=== PATIENT | female | born 1995 | race Caucasian/White ===

== ENCOUNTER 2020-05-26 | Emergency (ER) | payer OTHER ==
--- NOTE | 2020-05-26 15:55 | ER ---
Nurse's Notes [facility] Name: Em Estrada Age: 25 yrs Sex: Female : 1995 Arrival Date: 05/26/2020 Time: 14:57 Bed Waiting Private MD: Diagnosis: Presentation: 05/26 15:36 Note Called from the lobby, no answer. ca1 ED Course: 14:57 Patient arrived in ED. as 15:27 Deborah [facility]strada FNP-C [facility] kb 15:28 Yury Larios MD is Attending Physician. kb 15:53 Patient's name was called from ER lobby. No response. Unable to locate patient. Will ca1 disposition as left without being seen by a provider. Administered Medications: No medications were administered Outcome: 15:54 Patient left the ED. ca1 Signatures: Deborah Estrada FNP-C FNP-Ckb Martinez, Amelia as Acob, Cheryl RN RN ca1
== END 2020-05-26 15:54 | disposition left against medical advice (07) ==
DX: Z02.9 Encounter for administrative examinations, unspecified (principal)

== ENCOUNTER 2020-06-02 15:12 | Emergency (ER) | payer OTHER ==
[2020-06-02] MEDS ORDERED: METHYLPREDNISOLONE 125 MG INJ ONE (16:22)
--- NOTE | 2020-06-02 17:46 | ER ---
Nurse's Notes [facility] [place], [place] Name: Em Estrada Age: 25 yrs Sex: Female : 1995 Arrival Date: 06/02/2020 Time: 15:14 Bed 27 Private MD: Diagnosis: Acute upper respiratory infection, unspecified Presentation: 06/02 15:33 Chief complaint: Patient states: has been on abx and steroid for sore throat and cough iw and diff breathing X 1 week, has had bad migraines, has hx of asthma, going through her inhaler, still having diff breathing, is seeing a tele doc through her insurance. Coronavirus screen: headache, shortness of breath, Client presents with at least one sign or symptom that may indicate coronavirus-19. Standard/surgical mask placed on the client. Provider contacted for isolation considerations. Ebola Screen: Patient negative for fever greater than or equal to 101.5 degrees Fahrenheit, and additional compatible Ebola Virus Disease symptoms Patient denies exposure to infectious person. Patient denies travel to an Ebola-affected area in the 21 days before illness onset. No symptoms or risks identified at this time. Initial Sepsis Screen: Does the patient meet any 2 criteria? No. Patient's initial sepsis screen is negative. Does the patient have a suspected source of infection? No. Patient's initial sepsis screen is negative. Risk Assessment: Do you want to hurt yourself or someone else? Patient reports no desire to harm self or others. Onset of symptoms was May 26, 2020. 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 - Social history:: Smoking status: Patient denies any tobacco usage or history of. Screenin:07 Abuse screen: Denies threats or abuse. Denies injuries from another. Nutritional iw screening: No deficits noted. Tuberculosis screening: No symptoms or risk factors identified. Fall Risk None identified. Assessment: 15:45 General: Appears in no apparent distress. comfortable, Behavior is calm, cooperative. iw Pain: Complains of pain in head. Neuro: Level of Consciousness is awake, alert, obeys commands, Oriented to person, place, time, situation. Cardiovascular: Reports shortness of breath, Rhythm is regular. Respiratory: Airway is patent Respiratory effort is even, unlabored, Breath sounds are clear bilaterally. GI: No signs and/or symptoms were reported involving the gastrointestinal system. Derm: Skin is intact, is healthy with good turgor. Musculoskeletal: Range of motion: intact in all extremities. 17:07 Reassessment: Patient appears in no apparent distress at this time. Patient and/or iw family updated on plan of care and expected duration. Pain level reassessed. Patient is alert, oriented x 3, equal unlabored respirations, skin warm/dry/pink. 17:57 Reassessment: Patient appears in no apparent distress at this time. Patient is alert, ca1 oriented x 3, equal unlabored respirations, skin warm/dry/pink. Patient states feeling better. Vital Signs: 15:33 BP 120 / 89; Pulse 97; Resp 18 S; Temp 97.7; Pulse Ox 99% on R/A; iw 17:48 BP 112 / 66; Pulse 83; Resp 18 S; Pulse Ox 100% on R/A; ca1 ED Course: 15:14 Patient arrived in ED. rg4 15:30 [facility]C [facility]. kb 15:30 Racquel River MD is Attending Physician. kb 15:35 Triage completed. iw 15:35 Arm band placed on. iw 17:02 Anna Jc, RN is Primary Nurse. ca1 17:05 Patient has correct armband on for positive identification. Placed in gown. Bed in low ca1 position. Call light in reach. Side rails up X 1. 17:38 Chest Single View XRAY In Process Unspecified. EDMS 17:46 No provider procedures requiring assistance completed. Patient did not have IV access ca1 during this emergency room visit. Administered Medications: 16:11 Drug: SOLU-Medrol 125 mg Route: IM; Site: right deltoid; iw 17:48 Follow up: Response: No adverse reaction; Marked relief of symptoms ca1 Outcome: 17:45 Discharge ordered by . kb 17:57 Discharged to home ambulatory. ca1 17:57 Condition: stable 17:57 Discharge instructions given to patient, Instructed on discharge instructions, follow up and referral plans. medication usage, Demonstrated understanding of instructions, follow-up care, medications, Prescriptions given X 3. 17:57 Patient left the ED. ca1 Addendum: 06/05/2020 07:56 Addendum: COVID-19 Result: Negative result given to RN to notify pt. Attempted to a a5 contact pt regarding negative COVID-19 swab results. Other: Pt's phone number unavailable. Contacted next of kin on pt's demographics and left voice mail for pt to call back to ER for results. Signatures: Dispatcher [employer] Deborah Crane, HALL PORTER-C HALL PORTER-Jeaneth Moore, RN RN Swati Alnaiz RN RN Khadijah Valera4 Anna Jc RN RN ca1 Corrections: (The following items were deleted from the chart) 06/02 17:48 17:00 Patient has correct armband on for positive identification. Placed in gown. Bed ca1 in low position. Call light in reach. Side rails up X 1. ca1
--- NOTE | 2020-06-02 17:46 | EDPHYS ---
Physician Documentation [facility] Name: Em Estrada Age: 25 yrs Sex: Female : 1995 Arrival Date: 06/02/2020 Time: 15:14 Bed 27 Private MD: ED Physician Racquel River HPI: 06/02 16:45 This 25 yrs old Female presents to ER via Ambulatory with complaints of kb Breathing Difficulty, Headache, Cough, Body Aches. 16:45 The patient or guardian reports airway noise, cough, that is intermittent, described as kb mild, difficulty breathing, flu symptoms, myalgias. Onset: The symptoms/episode began/occurred 1 week(s) ago. Severity of symptoms: At their worst the symptoms were moderate, in the emergency department the symptoms are unchanged. Modifying factors: The symptoms are alleviated by nothing, the symptoms are aggravated by nothing. Associated signs and symptoms: The patient has no apparent associated signs or symptoms. The patient has not experienced similar symptoms in the past. The patient has not recently seen a physician. PT reports cough, shortness of breath, body aches, headaches for a week. Completed a course of zithromax and prednisone, but still having symptoms. Now out of inhaler. 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 - Social history:: Smoking status: Patient denies any tobacco usage or history of. ROS: 16:43 Cardiovascular: Negative for chest pain, palpitations, and edema, Abdomen/GI: Negative kb for abdominal pain, nausea, vomiting, diarrhea, and constipation, Back: Negative for injury and pain, : Negative for injury, bleeding, discharge, and swelling, MS/Extremity: Negative for injury and deformity, Skin: Negative for injury, rash, and discoloration. 16:43 Constitutional: Positive for body aches, malaise. 16:43 Respiratory: Positive for cough, dyspnea on exertion, shortness of breath. 16:43 Neuro: Positive for headache. Exam: 16:43 Constitutional: This is a well developed, well nourished patient who is awake, alert, kb and in no acute distress. Head/Face: Normocephalic, atraumatic. Chest/axilla: Normal chest wall appearance and motion. Nontender with no deformity. No lesions are appreciated. Cardiovascular: Regular rate and rhythm with a normal S1 and S2. No gallops, murmurs, or rubs. Normal PMI, no JVD. No pulse deficits. Respiratory: Lungs have equal breath sounds bilaterally, clear to auscultation and percussion. No rales, rhonchi or wheezes noted. No increased work of breathing, no retractions or nasal flaring. Abdomen/GI: Soft, non-tender, with normal bowel sounds. No distension or tympany. No guarding or rebound. No evidence of tenderness throughout. Skin: Warm, dry with normal turgor. Normal color with no rashes, no lesions, and no evidence of cellulitis. MS/ Extremity: Pulses equal, no cyanosis. Neurovascular intact. Full, normal range of motion. Neuro: Awake and alert, GCS 15, oriented to person, place, time, and situation. Cranial nerves II-XII grossly intact. Motor strength 5/5 in all extremities. Sensory grossly intact. Cerebellar exam normal. Normal gait. Vital Signs: 15:33 BP 120 / 89; Pulse 97; Resp 18 S; Temp 97.7; Pulse Ox 99% on R/A; iw 17:48 BP 112 / 66; Pulse 83; Resp 18 S; Pulse Ox 100% on R/A; ca1 MDM: 15:38 Patient medically screened. kb 16:44 Data reviewed: vital signs, nurses notes. Data interpreted: Pulse oximetry: on room air kb is 99 %. Interpretation: normal. Counseling: I had a detailed discussion with the patient and/or guardian regarding: the historical points, exam findings, and any diagnostic results supporting the discharge/admit diagnosis, lab results, radiology results, the need for outpatient follow up, a family practitioner, to return to the emergency department if symptoms worsen or persist or if there are any questions or concerns that arise at home. 06/02 15:31 Order name: Flu; Complete Time: 16:56 kb 06/02 15:39 Order name: COVID-19 kb 06/02 15:31 Order name: Chest Single View XRAY; Complete Time: 17:49 kb Administered Medications: 16:11 Drug: SOLU-Medrol 125 mg Route: IM; Site: right deltoid; iw 17:48 Follow up: Response: No adverse reaction; Marked relief of symptoms ca1 Disposition: 18:00 Co-signature as Attending Physician, Racquel River MD. ma2 Disposition: 06/02/20 17:45 Discharged to Home. Impression: Acute upper respiratory infection, unspecified. - Condition is Stable. - Discharge Instructions: Upper Respiratory Infection, Adult, [id number], COVID-19. - Prescriptions for Albuterol Sulfate 2.5 mg /3 mL (0.083 %) Inhalation Solution for Nebulization - inhale 1 unit by NEBULIZATION route every 8 hours As needed; 1 box. Medrol (Otto) 4 mg Oral Tablets, Dose Pack - take 1 tablet by ORAL route as directed - follow package instructions; 1 packet. Albuterol Sulfate 90 mcg/actuation - inhale 1-2 puff by INHALATION route every 4-6 hours; 1 Inhaler. - Medication Reconciliation Form, Thank You Letter, Antibiotic Education, Prescription Opioid Use, Work release form form. - Follow up: Emergency Department; When: As needed; Reason: Worsening of condition. Follow up: Private Physician; When: 2 - 3 days; Reason: Recheck today's complaints, Continuance of care, Re-evaluation by your physician. Signatures: Dispatcher [employer] Deborah Crane, APRIL-C ACLS NURSE-Jeaneth Moore, FAN RN Racquel Rome MD MD ma2 Anna Jc RN RN ca1 Corrections: (The following items were deleted from the chart) 17:57 17:45 06/02/2020 17:45 Discharged to Home. Impression: Acute upper respiratory ca1 infection, unspecified. Condition is Stable. Forms are Medication Reconciliation Form, Thank You Letter, Antibiotic Education, Prescription Opioid Use. Follow up: Emergency Department; When: As needed; Reason: Worsening of condition. Follow up: Private Physician; When: 2 - 3 days; Reason: Recheck today's complaints, Continuance of care, Re-evaluation by your physician. kb
--- NOTE | 2020-06-02 17:47 | RAD REPORT ---
EXAM DESCRIPTION: RAD - Chest Single View - 06/02/2020 5:38 pm CLINICAL HISTORY: Congestion;Cough Chest pain. COMPARISON: No comparisons FINDINGS: Portable technique limits examination quality. The lungs are grossly clear. The heart is normal in size. No displaced fractures. IMPRESSION: No acute intrathoracic process suspected.
== END 2020-06-02 17:57 | disposition home or self-care (01) ==
LOC: ER 15:12
DX: J06.9 Acute upper respiratory infection, unspecified (principal); Z20.828 Contact with and (suspected) exposure to other viral communicable diseases; J45.909 Unspecified asthma, uncomplicated
CPT/HCPCS: 87804 ×2; 71045; 96372; 99283; U0002; J2930